=== PATIENT | male | born 1980 | race Caucasian/White ===

== ENCOUNTER 2017-05-11 11:20 | Emergency (ER) | payer MEDICARE, MEDICAID ==
[2017-05-11 11:43] VITALS: O2SAT 97
[2017-05-11 12:00] LABS: BASOPHILS % (AUTO) 1 % (0-3); EOSINOPHILS % (AUTO) 3 % (0-9); HEMATOCRIT 42 % (39-53); MEAN CORPUSCULAR HGB CONC 35.2 gm/dl (32.0-36.0); MEAN CORPUSCULAR VOLUME 85 fL (80-100); MONOCYTES % (AUTO) 6.7 % (0-12); NEUTROPHILS % (AUTO) 69.6 % (37-80)
[2017-05-11 12:15] LABS: ALBUMIN 3.6 gm/dl (3.4-5.0); CALCIUM 8.8 mg/dl (8.5-10.1)
[2017-05-11] MEDS ORDERED: SODIUM CHLORIDE 0.9% 1000ML 1,000 ML IV ONE (12:23)
[2017-05-11 12:35] VITALS: RESP 20
[2017-05-11 13:34] LABS: APPEARANCE,URINE Clear; BILIRUBIN,URINE NEGATIVE (NEGATIVE); COLOR,URINE Yellow; GLUCOSE, URINE (UA) NEGATIVE (NEGATIVE); KETONES,URINE NEGATIVE (NEGATIVE); LEUKOCYTE ESTERASE ,URINE NEGATIVE (NEGATIVE); NITRATE,URINE NEGATIVE (NEGATIVE); OCCULT BLOOD,URINE TRACE INTACT (NEG-TRACE); PH,URINE 8.5; UROBILINOGEN,URINE 0.2 (0.2-1.0 EU)
[2017-05-11 13:39] VITALS: BP 148/81; PULSE 70; TEMP 98
[2017-05-11 13:46] LABS: RBC,URINE 0-2 (0-3AV/HPF); WBC,URINE 0-1 (0-5AV/HPF)
[2017-05-11] MEDS ORDERED: AMOXICILLIN 250 MG CAP PO ONE (13:47)
[2017-05-11] MEDS ORDERED: AMOXICILLIN(FRIDGE) 125/5 ML BOTTLE ONE (13:54)
== END 2017-05-11 14:05 | disposition home or self-care (01) | DRG 605 ==
LOC: ED 11:20
DX: S20.20XA Contusion of thorax, unspecified, initial encounter (principal); D72.829 Elevated white blood cell count, unspecified; J01.00 Acute maxillary sinusitis, unspecified; N28.9 Disorder of kidney and ureter, unspecified; W19.XXXA Unspecified fall, initial encounter
CPT/HCPCS: 71260; 74177; 80053; 81001; 85025; 96365; 99284; 99285; Q9967; A9270-GY